=== PATIENT | male | born 1985 | race Two or more races ===

== ENCOUNTER 2021-04-16 19:46 | Emergency (ER) | payer SELFPAY ==
[~2021-04-16] VITALS: Ht 167.6 cm; Wt 73.0 kg
[2021-04-16 20:06] VITALS: BP 116/51
== END 2021-04-16 22:13 | disposition home or self-care (01) ==
LOC: ED 22:05
DX: S29.012A Strain of muscle and tendon of back wall of thorax, initial encounter (principal); X58.XXXA Exposure to other specified factors, initial encounter; Y93.89 Activity, other specified; Y92.89 Other specified places as the place of occurrence of the external cause; Y99.8 Other external cause status
CPT/HCPCS: 36415; 80053; 83690; 85025; 96372; 99283; J1885